=== PATIENT | male | born 2000 | race Hispanic/Latino ===

== ENCOUNTER 2021-10-07 21:28 | Emergency (ER) | payer OTHER ==
[~2021-10-07] VITALS: Ht 182.9 cm; Wt 77.1 kg
[2021-10-07] MEDS ORDERED: LIDOCAINE HCL 1% LOCAL INJ 20 ML VIAL INJ STA (21:42)
[2021-10-07] MEDS ORDERED: CLINDAMYCIN HC300 MG PO (21:48)
== END 2021-10-07 21:52 | disposition home or self-care (01) ==
LOC: ER 21:30
DX: K08.89 Other specified disorders of teeth and supporting structures (principal); F17.210 Nicotine dependence, cigarettes, uncomplicated
CPT/HCPCS: 99282

== ENCOUNTER 2021-10-07 22:55 | Emergency (ER) | payer OTHER ==
[~2021-10-07] VITALS: Ht 182.9 cm; Wt 77.1 kg
[~2021-10-07 22:55] MED LIST: CLINDAMYCIN HC300 MG PO
[2021-10-07] MEDS ORDERED: BUPIVACAINE HCL 0.25% 10ML MPF VIAL INJ ONE (23:00)
== END 2021-10-07 23:42 | disposition home or self-care (01) ==
LOC: ER 23:09
DX: K08.89 Other specified disorders of teeth and supporting structures (principal)
CPT/HCPCS: 99282